=== PATIENT | male | born 1990 | race Caucasian/White ===

== ENCOUNTER 2017-05-22 01:39 | Emergency (ER) | payer SELFPAY ==
[~2017-05-22] VITALS: Ht 167.6 cm; Wt 56.0 kg
[2017-05-22] MEDS ORDERED: CIPRODEX OTIC SUSP 7.5ML AD ONE (05:45)
[2017-05-22 05:50] VITALS: BP 137/59
== END 2017-05-22 06:06 | disposition home or self-care (01) ==
LOC: M ED 02:54
DX: H60.91 Unspecified otitis externa, right ear (principal)

== ENCOUNTER 2017-05-25 11:22 | Emergency (ER) | payer SELFPAY ==
[~2017-05-25] VITALS: Ht 167.6 cm; Wt 57.0 kg
[2017-05-25 11:22] VITALS: BP 133/73
[2017-05-25] MEDS ORDERED: [UNRECOGNIZED DRUG - REMARK] (11:32)
[2017-05-25] MEDS ORDERED: NAPR500T PO (12:00)
[2017-05-25] MEDS ORDERED: PENI500T GT (12:00)
[2017-05-25] MEDS ORDERED: PENI500T PO (12:09)
== END 2017-05-25 12:20 | disposition home or self-care (01) ==
LOC: M ED 12:15
DX: K02.9 Dental caries, unspecified (principal); F41.9 Anxiety disorder, unspecified; F17.210 Nicotine dependence, cigarettes, uncomplicated

== ENCOUNTER 2017-12-16 23:34 | Inpatient (IN) | payer MEDICAID, SELFPAY ==
[2017-12-17 00:50] LABS: HEMATOCRIT 44.2 % (42.0-52.0); HEMOGLOBIN 14.6 g/dl (14.0-18.0); MEAN CORPUSCULAR HEMOGLOBIN 27.8 pg (27.0-33.0); PLATELET COUNT, AUTOMATED 264 10^3/uL (150-450); RED BLOOD COUNT 5.26 10^6/uL (4.30-6.10); RED CELL DISTRIBUTION WIDTH 12.7 % (11.5-14.5); WHITE BLOOD COUNT 6.1 10^3/uL (4.0-10.0)
[2017-12-17 01:10] LABS: ACETAMINOPHEN LEVEL < 2.0 UG/ML (10.0-30.0); ALBUMIN 4.5 GM/DL (3.2-5.2); ALBUMIN/GLOBULIN RATIO 1.45 (1.00-1.93); ALKALINE PHOSPHATASE 58 U/L (45-117); ALT/SGPT 15 U/L (12-78); AMPHETAMINES LEVEL URINE NEGATIVE (NEGATIVE); ANION GAP 5 MEQ/L (8-16); AST/SGOT 15 U/L (7-37); BARBITURATES URINE NEGATIVE (NEGATIVE); BENZODIAZEPINES URINE NEGATIVE (NEGATIVE); BILIRUBIN,DIRECT 0.3 MG/DL (0.0-0.2); BILIRUBIN,TOTAL 1.8 MG/DL (0.2-1.0); BLOOD UREA NITROGEN 15 MG/DL (7-18); CALCIUM LEVEL 8.7 MG/DL (8.5-10.1); CANNABINOIDS URINE NEGATIVE (NEGATIVE); CARBON DIOXIDE LEVEL 31 MEQ/L (21-32); CHLORIDE LEVEL 103 MEQ/L (98-107); COCAINE METABOLITE URINE NEGATIVE (NEGATIVE); CREATININE FOR GFR 1.09 MG/DL (0.70-1.30); ETHYL ALCOHOL (ETHANOL) 0.006 % (0.000-0.010); GLOMERULAR FILTRATION RATE > 60.0 (>60); GLUCOSE, FASTING 91 MG/DL (70-105); METHADONE URINE NEGATIVE (NEGATIVE); OPIATES URINE NEGATIVE (NEGATIVE); PHENCYCLIDINE URINE NEGATIVE (NEGATIVE); POTASSIUM SERUM 4.5 MEQ/L (3.5-5.1); SALICYLATE LEVEL < 1.7 MG/DL (5.0-30.0); SODIUM LEVEL 139 MEQ/L (136-145); TOTAL PROTEIN 7.6 GM/DL (6.4-8.2)
[2017-12-17] MEDS ORDERED: MOM 30ML SUSPENSION UDC PO (01:45)
[2017-12-17] MEDS ORDERED: traZODone 50 MG TAB PO (01:45)
[2017-12-17] MEDS ORDERED: ACETAMINOPHEN TAB 650MG DOSE (2X325MG) PO (01:45)
[2017-12-17] MEDS ORDERED: MAALOX 30 ML SUSP *UDC PO (01:45)
[2017-12-17 01:52] LABS: THYROID STIMULATING HORMONE 0.727 uIU/ML (0.358-3.740)
[2017-12-17 10:58] LABS: HEPATITIS B SURFACE ANTIGEN NEGATIVE (NEGATIVE)
[2017-12-17 11:24] LABS: HEPATITIS C VIRUS ABY INDEX 0.1 INDEX (<0.8)
[2017-12-17 11:25] LABS: HEPATITIS B CORE ANTIBODY IGM NEGATIVE (NEGATIVE)
[2017-12-17 11:26] LABS: HIV 1&2 SCREEN CENTAUR NEGATIVE (NEGATIVE)
[2017-12-17 11:27] LABS: HEPATITIS A ANTIBODY IGM NEGATIVE (NEGATIVE)
[2017-12-17] MEDS ORDERED: hydrOXYzine 25 MG TAB PO (14:00)
[2017-12-17] MEDS: SERTRALINE HCL 25 MG TABLET PO (15:41)
[2017-12-17] MEDS: DOXEPIN 25 MG CAP PO (21:00)
[2017-12-18] MEDS: SERTRALINE HCL 25 MG TABLET PO (09:00)
[2017-12-18] MEDS: DOXEPIN 25 MG CAP PO (21:00)
[2017-12-19] MEDS: SERTRALINE HCL 25 MG TABLET PO (09:00)
[2017-12-19] MEDS: DOXEPIN 25 MG CAP PO (21:00)
[2017-12-20] MEDS: SERTRALINE HCL 25 MG TABLET PO (08:27)
[2017-12-20] MEDS: DOXEPIN 25 MG CAP PO (21:00)
[2017-12-21] MEDS: SERTRALINE HCL 25 MG TABLET PO (08:43)
== END 2017-12-21 10:40 | disposition home or self-care (01) | DRG 754 ==
LOC: M ED 23:34 → M ED INP 12-17 01:44 → M PSY 12-17 02:00
DX: F43.21 Adjustment disorder with depressed mood (principal); F10.10 Alcohol abuse, uncomplicated; R45.851 Suicidal ideations; Z88.8 Allergy status to other drugs, medicaments and biological substances; F17.200 Nicotine dependence, unspecified, uncomplicated

== ENCOUNTER 2018-02-18 22:47 | Emergency (ER) | payer MEDICAID ==
[2018-02-18 23:18] LABS: HEMATOCRIT 44.5 % (42.0-52.0); HEMOGLOBIN 14.6 g/dl (14.0-18.0); MEAN CORPUSCULAR HEMOGLOBIN 27.2 pg (27.0-33.0); MEAN CORPUSCULAR HGB CONC 32.8 g/dl (32.0-36.5); PLATELET COUNT, AUTOMATED 293 10^3/uL (150-450); RED BLOOD COUNT 5.36 10^6/uL (4.30-6.10); RED CELL DISTRIBUTION WIDTH 12.6 % (11.5-14.5); WHITE BLOOD COUNT 7.9 10^3/uL (4.0-10.0)
[2018-02-18] MEDS: diphenhydrAMINE INJ 50MG/ML VIAL (J1200) IM (23:18)
[2018-02-18] MEDS: LORazepam 2 MG/ML VIAL (J2060) IM (23:18)
[2018-02-18] MEDS: HALOPERIDOL 5 MG/ML VIAL (J1630) IM (23:18)
[2018-02-18 23:39] LABS: ALBUMIN 4.1 GM/DL (3.2-5.2); ALBUMIN/GLOBULIN RATIO 1.17 (1.00-1.93); ALKALINE PHOSPHATASE 91 U/L (45-117); ALT/SGPT 24 U/L (12-78); ANION GAP 8 MEQ/L (8-16); AST/SGOT 29 U/L (7-37); BILIRUBIN,DIRECT 0.2 MG/DL (0.0-0.2); BILIRUBIN,TOTAL 0.8 MG/DL (0.2-1.0); BLOOD UREA NITROGEN 7 MG/DL (7-18); CALCIUM LEVEL 8.2 MG/DL (8.5-10.1); CARBON DIOXIDE LEVEL 27 MEQ/L (21-32); CHLORIDE LEVEL 107 MEQ/L (98-107); CREATININE FOR GFR 0.95 MG/DL (0.70-1.30); ETHYL ALCOHOL (ETHANOL) 0.287 % (0.000-0.010); GLOMERULAR FILTRATION RATE > 60.0 (>60); GLUCOSE, FASTING 90 MG/DL (70-100); POTASSIUM SERUM 3.6 MEQ/L (3.5-5.1); SALICYLATE LEVEL < 1.7 MG/DL (5.0-30.0); SODIUM LEVEL 142 MEQ/L (136-145); THYROID STIMULATING HORMONE 0.941 uIU/ML (0.358-3.740); TOTAL PROTEIN 7.6 GM/DL (6.4-8.2)
[2018-02-18 23:40] LABS: ACETAMINOPHEN LEVEL < 2.0 UG/ML (10.0-30.0)
[2018-02-19] MEDS: ADACEL/BOOSTRIX VACCINE (DIPHTH/PERTUSS/ACELL/TETANUS)0.5ML SYR (90715) IM (00:16)
[2018-02-19 02:38] LABS: AMPHETAMINES LEVEL URINE NEGATIVE (NEGATIVE); BARBITURATES URINE NEGATIVE (NEGATIVE); BENZODIAZEPINES URINE NEGATIVE (NEGATIVE); CANNABINOIDS URINE NEGATIVE (NEGATIVE); COCAINE METABOLITE URINE NEGATIVE (NEGATIVE); METHADONE URINE NEGATIVE (NEGATIVE); OPIATES URINE NEGATIVE (NEGATIVE); PHENCYCLIDINE URINE NEGATIVE (NEGATIVE)
== END 2018-02-19 14:56 | disposition home or self-care (01) ==
LOC: M ED 22:47
DX: F43.20 Adjustment disorder, unspecified (principal); F10.129 Alcohol abuse with intoxication, unspecified; F17.200 Nicotine dependence, unspecified, uncomplicated; Z88.1 Allergy status to other antibiotic agents
CPT/HCPCS: J1200